=== PATIENT | male | born 1970 | race Caucasian/White ===

== ENCOUNTER 2017-06-18 13:08 | Emergency (ER) | payer SELFPAY ==
[~2017-06-18] VITALS: Ht 182.9 cm; Wt 105.0 kg
[2017-06-18 13:10] VITALS: BP 164/99; PULSE 70; RESP 24; TEMP 97.5; O2SAT 98
--- NOTE | 2017-06-18 13:26 | PD ---
HPI Chief Complaint: Abdominal Pain Time Seen by Provider: 13:26 Travel History International Travel<30 days: No Contact w/Intl Traveler<30days: No Traveled to known affect area: No History of Present Illness HPI 46-year-old male came to the emergency room with history of sudden onset of right lower quadrant pain. Patient said that he did not eat anything except for an alkaline the morning and he vomited the apple out. He has never had pain like this in the past. He looked very uncomfortable. No radiation of the pain. Vital signs were within acceptable limits. Patient has never had any abdominal surgeries in the past. He claims to be otherwise healthy. [facility] Past Medical History Narrative Medical List of his past medical, surgical, social and family history was reviewed from the nursing note. Social History Tobacco Use: No Allergies-Medications (Allergen,Severity, Reaction): Coded Allergies: No Known Allergies (Unverified , 06/19/17) Comments No known drug allergies. Reported Meds & Prescriptions Reported Meds & Active Scripts Active Lortab (Hydrocodone-Acetaminophen) 5-325 Mg Tab 1 Tab PO Q6H PRN Zofran Odt (Ondansetron Odt) 4 Mg Tab 4 Mg SL Q6HR PRN Hydrocodone-Acetaminophen 5-325 mg Tab 1 Tab PO Q6H PRN Flomax (Tamsulosin HCl) 0.4 Mg Cap 0.4 Mg PO HS Narrative Medication Awaiting for the nurse to do the med reconciliation. Review of Systems Except as stated in HPI: all other systems reviewed are Neg Physical Exam Narrative GENERAL: Awake, alert, significant distress SKIN: Focused skin assessment warm/dry. HEAD: Atraumatic. Normocephalic. EYES: Pupils equal and round. No scleral icterus. No injection or drainage. ENT: No nasal bleeding or discharge. Mucous membranes pink and moist. NECK: Trachea midline. No JVD. CARDIOVASCULAR: Regular rate and rhythm. No murmur appreciated. RESPIRATORY: No accessory muscle use. Clear to auscultation. Breath sounds equal bilaterally. GASTROINTESTINAL: Decreased bowel sounds, guarding and tenderness in the right lower quadrant, nondistended. Hepatic and splenic margins not palpable. MUSCULOSKELETAL: No obvious deformities. No clubbing. No cyanosis. No edema. NEUROLOGICAL: Awake and alert. No obvious cranial nerve deficits. Motor grossly within normal limits. Normal speech. PSYCHIATRIC: Appropriate mood and affect; insight and judgment normal. Data Data Last Documented VS Vital Signs Date Time Temp Pulse Resp B/P Pulse Ox O2 Delivery O2 Flow Rate FiO2 06/18/17 16:58 97.8 72 16 130/79 99 06/18/17 14:28 Room Air Orders Complete Blood Count With Diff (06/18/17 13:33) Comprehensive Metabolic Panel (06/18/17 13:33) Lipase (06/18/17 13:33) Urinalysis - C+S If Indicated (06/18/17 13:33) Ct Abd/Pel W/O Iv Contrast (06/18/17 13:33) Iv Access Insert/Monitor (06/18/17 13:33) Ecg Monitoring (06/18/17 13:33) Oximetry (06/18/17 13:33) Morphine Inj (Morphine Inj) (06/18/17 13:45) Ondansetron Inj (Zofran Inj) (06/18/17 13:45) Sodium Chlor 0.9% 1000 Ml Inj (Ns 1000 M (06/18/17 13:33) Sodium Chloride 0.9% Flush (Ns Flush) (06/18/17 13:45) Sodium Chlorid 0.9% 500 Ml Inj (Ns 500 M (06/18/17 16:00) Tamsulosin (Flomax) (06/18/17 16:00) Strain Urine PRN (06/18/17 15:59) Labs Laboratory Tests Test 06/18/17 06/18/17 13:38 14:40 White Blood Count 11.7 TH/MM3 Red Blood Count 5.36 MIL/MM3 Hemoglobin 15.9 GM/DL Hematocrit 45.2 % Mean Corpuscular Volume 84.3 FL Mean Corpuscular Hemoglobin 29.6 PG Mean Corpuscular Hemoglobin 35.1 % Concent Red Cell Distribution Width 13.8 % Platelet Count 183 TH/MM3 Mean Platelet Volume 8.4 FL Neutrophils (%) (Auto) 83.7 % Lymphocytes (%) (Auto) 10.5 % Monocytes (%) (Auto) 4.7 % Eosinophils (%) (Auto) 0.6 % Basophils (%) (Auto) 0.5 % Neutrophils # (Auto) 9.8 TH/MM3 Lymphocytes # (Auto) 1.2 TH/MM3 Monocytes # (Auto) 0.5 TH/MM3 Eosinophils # (Auto) 0.1 TH/MM3 Basophils # (Auto) 0.1 TH/MM3 CBC Comment DIFF FINAL Differential Comment Sodium Level 139 MEQ/L Potassium Level 4.2 MEQ/L Chloride Level 107 MEQ/L Carbon Dioxide Level 22.1 MEQ/L Anion Gap 10 MEQ/L Blood Urea Nitrogen 16 MG/DL Creatinine 1.04 MG/DL Estimat Glomerular Filtration 76 ML/MIN Rate Random Glucose 139 MG/DL Calcium Level 9.3 MG/DL Total Bilirubin 0.3 MG/DL Aspartate Amino Transf 13 U/L (AST/SGOT) Alanine Aminotransferase 21 U/L (ALT/SGPT) Alkaline Phosphatase 77 U/L Total Protein 7.3 GM/DL Albumin 3.9 GM/DL Lipase 112 U/L Urine Color YELLOW Urine Turbidity CLEAR Urine pH 5.0 Urine Specific [place] 1.023 Urine Protein TRACE mg/dL Urine Glucose (UA) NEG mg/dL Urine Ketones 40 mg/dL Urine Occult Blood MOD Urine Nitrite NEG Urine Bilirubin NEG Urine Urobilinogen LESS THAN 2.0 MG/DL Urine Leukocyte Esterase NEG Urine RBC 82 /hpf Urine WBC 4 /hpf Urine Bacteria OCC /hpf Microscopic Urinalysis Comment CULT NOT INDICATED MDM Medical Decision Making Medical Screen Exam Complete: Yes Emergency Medical Condition: Yes Medical Record Reviewed: Yes Differential Diagnosis Acute appendicitis, terminal ileitis, ureteral colic, abdominal pain NOS Narrative Course 1:40 PM awaiting for the labs and CT to be done and resulted. Patient was given IV fluid and medicated for pain and nausea. 2:43 PM blood test results of back and within acceptable limits. CT scan shows a 5 mm stone in her right UPJ with hydroureter. I went to reassess him and he said currently his pain is 1 out of 10. He had initially come in and he said it was 10 out of 10. He will try to give a UA. If the UA is negative and his pain is still under well-controlled and I'll discharge him home. 3:56 PM the UA just shows hematuria. I will discharge him home. He said his pain was still 1. He was sleeping and comfortable. Gave him all the instructions and signs to watch for for coming back. Procedures EKG Prior to Arrival: No Diagnosis Primary Impression: Ureteral colic Additional Impressions: Ureteral calculi Hydroureter Referrals: Eitan Bowden MD 3 days Additional Instructions: Please follow-up with the urologist whose name and number been given to you. Urinate through the strainer has been provided to you at all times till you pass the stone. Take the stone with you to the urologist. Take the medication as per the prescription direction. Return to the ER if the condition worsens or any other new concerns. Med/Other Pt SpecificInfo: Prescription(s) given Scripts Hydrocodone-Acetaminophen 5-325 mg Tab1 Tab PO Q6H PRN (PAIN) #20 TAB Ref 0 Prov:Narciso Hutchins MD 06/18/17 Tamsulosin (Flomax)0.4 Mg Cap0.4 Mg PO HS #10 CAP Ref 0 Prov:Narciso Hutchins MD 06/18/17 Disposition: 01 DISCHARGE HOME Condition: Stable Narciso Hutchins MD Jun 18, 2017 13:26
[2017-06-18] MEDS ORDERED: SODIUM CHLOR 0.9% 1000 ML INJ 1,000 ML IV SCH (13:33)
[2017-06-18 13:40] VITALS: RESP 17; O2SAT 99
[2017-06-18] MEDS ORDERED: ONDANSETRON HCL 4 MG/2 ML VIAL IVP ONE (13:45)
[2017-06-18] MEDS ORDERED: MORPHINE SULFATE 4 MG/ML INJ IV PUSH ONE (13:45)
[2017-06-18] MEDS ORDERED: SODIUM CHLORIDE 0.9% FLUSH 10 ML FLUSH IV FLUSH PRN (13:45)
[2017-06-18 14:03] LABS: AUTOMATED NEUTROPHIL # 9.8 TH/MM3 (1.8-7.7); BASOPHIL # 0.1 TH/MM3 (0-0.2); BASOPHIL % 0.5 % (0.0-2.0); EOSINOPHIL # 0.1 TH/MM3 (0-0.4); EOSINOPHIL % 0.6 % (0.0-4.0); HEMATOCRIT 45.2 % (39.0-51.0); HEMO FLAGS DIFF FINAL; LYMPH % 10.5 % (9.0-44.0); LYMPHOCYTE # 1.2 TH/MM3 (1.0-4.8); MEAN CELL VOLUME 84.3 FL (80.0-100.0); MEAN CORPUSCULAR HEMOGLOBIN 29.6 PG (27.0-34.0); MEAN CORPUSCULAR HGB CONC 35.1 % (32.0-36.0); MONO % 4.7 % (0.0-8.0); NEUT % 83.7 % (16.0-70.0); PLATELET COUNT 183 TH/MM3 (150-450); RED BLOOD COUNT 5.36 MIL/MM3 (4.50-5.90); RED CELL DISTRIBUTION WIDTH 13.8 % (11.6-17.2); WHITE BLOOD COUNT 11.7 TH/MM3 (4.0-11.0)
--- NOTE | 2017-06-18 14:24 | RADRPT ---
EXAM DATE/TIME: 06/18/2017 14:01 [facility] COMPARISON: No previous studies available for comparison. INDICATIONS : Right lower quadrant pain x 2 hours with nausea and vomiting. ORAL CONTRAST: No oral contrast ingested. RADIATION DOSE: 9.96 CTDIvol (mGy) MEDICAL HISTORY : None SURGICAL HISTORY : None. ENCOUNTER: Initial ACUITY: 1 day PAIN SCALE: 7/10 LOCATION: Right lower quadrant TECHNIQUE: Volumetric scanning of the abdomen and pelvis was performed. Using automated exposure control and ad justment of the mA and/or kV according to patient size, radiation dose was kept as low as reasonably achievable to obtain optimal diagnostic quality images. DICOM format image data is available electro nically for review and comparison. FINDINGS: There is dependent atelectasis at both lung bases. No acute findings in the liver, spleen, adrenals, left kidney or pancreas. 5 mm calculus at the right ureteropelvic junction resulting in a right sided obstructive uropathy and mild to moderate right hydronephrosis.. No free fluid. No bowel obstruction. No adenopathy. No acute bony abnormalities. CONCLUSION: 1. Right-sided obstructive uropathy secondary to a 5 mm calculus at the right UPJ with mild to modera te right hydronephrosis. No other renal calculi identified. Rojelio Fonseca MD on June 18, 2017 at 14:19 Board Certified Radiologist. This report was verified electronically.
[2017-06-18 14:28] VITALS: BP 146/80; PULSE 74; RESP 16; TEMP 97.8; O2SAT 99
[2017-06-18 14:28] LABS: ANION GAP 10 MEQ/L (5-15); AST (GOT) 13 U/L (15-37); BICARBONATE 22.1 MEQ/L (21.0-32.0); BLOOD UREA NITROGEN 16 MG/DL (7-18); CHLORIDE 107 MEQ/L (98-107); GLOMERULAR FILTRATION RATE 76 ML/MIN (>89); POTASSIUM 4.2 MEQ/L (3.5-5.1); SODIUM (NA) 139 MEQ/L (136-145)
[2017-06-18 14:29] LABS: ALT (GPT) 21 U/L (12-78)
[2017-06-18 14:31] LABS: ALKALINE PHOSPHATASE 77 U/L (45-117); TOTAL BILIRUBIN ADULT 0.3 MG/DL (0.2-1.0)
[2017-06-18 15:41] LABS: BACTERIA, URINE OCC /hpf; BLOOD, URINE MOD (NEG); COMMENT (UR) CULT NOT INDICATED; CULTURE IF INDICATED CULT NOT INDICATED; GLUCOSE,URINE NEG (NEG); KETONE, URINE 40 mg/dL (NEG); NITRITE,URINE NEG (NEG); URINE COLOR YELLOW (YELLW/STRAW)
[2017-06-18] MEDS ORDERED: TAMS5CAP PO (15:58)
[2017-06-18] MEDS ORDERED: HYDR-3516 PO (15:58)
[2017-06-18] MEDS ORDERED: TAMSULOSIN HCL 0.4 MG CAP PO ONE (16:00)
[2017-06-18] MEDS ORDERED: SODIUM CHLORID 0.9% 500 ML INJ 500 ML IV ONE (16:00)
[2017-06-18 16:58] VITALS: BP 130/79; TEMP 97.8
[2017-06-19] MEDS ORDERED: ZOFR4TAB3 SL (10:06)
[2017-06-19] MEDS ORDERED: HYDR-3533 PO (10:10)
== END 2017-06-18 17:02 | disposition home or self-care (01) ==
LOC: NEPE 13:08
DX: N13.2 Hydronephrosis with renal and ureteral calculous obstruction (principal)
CPT/HCPCS: 74176; 80053; 81001; 83690; 85025; 96361; 96374; 96375; 99285; J2270; J2405; J7030; J7040

== ENCOUNTER 2017-06-19 07:14 | Emergency (ER) | payer SELFPAY ==
[~2017-06-19 07:14] MED LIST: HYDR-3516 PO; TAMS5CAP PO
[2017-06-19 07:16] VITALS: BP 163/97; PULSE 74; TEMP 97.6; O2SAT 97
[2017-06-19] MEDS ORDERED: SODIUM CHLOR 0.9% 1000 ML INJ 1,000 ML IV ONE (07:30)
[2017-06-19] MEDS ORDERED: ONDANSETRON HCL 4 MG/2 ML VIAL IV PUSH ONE (07:30)
[2017-06-19] MEDS ORDERED: KETOROLAC TROMETHAMINE 30 MG/ML (IVP) VIAL IV PUSH ONE (07:30)
--- NOTE | 2017-06-19 07:30 | PD ---
HPI Chief Complaint: Flank/Kidney Pain Time Seen by Provider: 07:25 Travel History International Travel<30 days: No Contact w/Intl Traveler<30days: No Traveled to known affect area: No History of Present Illness HPI 46 y/o male states that he is been having continued right sided abdominal pain and vomiting since being discharged. He states he cannot afford his home medications until . He states he has had no other symptoms since being discharged. Quality is sharp. Severity severe. He confirms that he was here yesterday for kidney stone. PFSH Past Medical History Diminished Hearing: No Genitourinary: Yes (kidney stones) Tetanus Vaccination: > 5 Years Influenza Vaccination: Yes Past Surgical History Genitourinary Surgery: Yes (left testicule sx) Social History Alcohol Use: No (pt denies ) Tobacco Use: Yes (1 pack per day) Substance Use: No (pt denies) Allergies-Medications (Allergen,Severity, Reaction): Coded Allergies: No Known Allergies (Unverified , 06/19/17) Reported Meds & Prescriptions Reported Meds & Active Scripts Active Lortab (Hydrocodone-Acetaminophen) 5-325 Mg Tab 1 Tab PO Q6H PRN Zofran Odt (Ondansetron Odt) 4 Mg Tab 4 Mg SL Q6HR PRN Hydrocodone-Acetaminophen 5-325 mg Tab 1 Tab PO Q6H PRN Flomax (Tamsulosin HCl) 0.4 Mg Cap 0.4 Mg PO HS Review of Systems Except as stated in HPI: all other systems reviewed are Neg Physical Exam Narrative GENERAL: Well-nourished, well-developed patient. Uncomfortable SKIN: Warm and dry. HEAD: Normocephalic and atraumatic. EYES: No injection or drainage. ENT: No nasal drainage noted. NECK: Supple, trachea midline. CARDIOVASCULAR: Regular rate and rhythm RESPIRATORY: No increased effort. No accessory muscle use. GASTROINTESTINAL: Abdomen soft, tender right mid abdomen, nondistended. EXTREMITIES: No edema. BACK: Nontender without obvious deformity. NEUROLOGICAL: Awake and alert. Motor and sensory grossly within normal limits. Normal speech. Data Data Last Documented VS Vital Signs Date Time Temp Pulse Resp B/P Pulse Ox O2 Delivery O2 Flow Rate FiO2 06/19/17 09:00 97.8 76 16 150/81 99 Room Air Orders Complete Blood Count With Diff (06/19/17 07:25) Basic Metabolic Panel (Bmp) (06/19/17 07:25) Iv Access Insert/Monitor (06/19/17 07:25) Ketorolac Inj (Toradol Inj) (06/19/17 07:30) Sodium Chlor 0.9% 1000 Ml Inj (Ns 1000 M (06/19/17 07:30) Ondansetron Inj (Zofran Inj) (06/19/17 07:30) Urinalysis - C+S If Indicated (06/19/17 09:08) Mandatory Outpatient Referral (06/19/17 09:54) Labs Laboratory Tests Test 06/19/17 06/19/17 07:30 09:30 White Blood Count 16.7 TH/MM3 Red Blood Count 5.36 MIL/MM3 Hemoglobin 15.4 GM/DL Hematocrit 45.7 % Mean Corpuscular Volume 85.2 FL Mean Corpuscular Hemoglobin 28.8 PG Mean Corpuscular Hemoglobin 33.8 % Concent Red Cell Distribution Width 13.9 % Platelet Count 198 TH/MM3 Mean Platelet Volume 8.5 FL Neutrophils (%) (Auto) 91.3 % Lymphocytes (%) (Auto) 4.7 % Monocytes (%) (Auto) 3.5 % Eosinophils (%) (Auto) 0.1 % Basophils (%) (Auto) 0.4 % Neutrophils # (Auto) 15.2 TH/MM3 Lymphocytes # (Auto) 0.8 TH/MM3 Monocytes # (Auto) 0.6 TH/MM3 Eosinophils # (Auto) 0.0 TH/MM3 Basophils # (Auto) 0.1 TH/MM3 CBC Comment DIFF FINAL Differential Comment Sodium Level 138 MEQ/L Potassium Level 4.0 MEQ/L Chloride Level 107 MEQ/L Carbon Dioxide Level 23.7 MEQ/L Anion Gap 7 MEQ/L Blood Urea Nitrogen 14 MG/DL Creatinine 1.14 MG/DL Estimat Glomerular Filtration 69 ML/MIN Rate Random Glucose 138 MG/DL Calcium Level 8.9 MG/DL Urine Color YELLOW Urine Turbidity CLEAR Urine pH 6.5 Urine Specific [place] 1.011 Urine Protein NEG mg/dL Urine Glucose (UA) NEG mg/dL Urine Ketones NEG mg/dL Urine Occult Blood MOD Urine Nitrite NEG Urine Bilirubin NEG Urine Urobilinogen LESS THAN 2.0 MG/DL Urine Leukocyte Esterase NEG Urine RBC 53 /hpf Urine WBC 2 /hpf Urine Mucus FEW /lpf Microscopic Urinalysis Comment CULT NOT INDICATED MDM Medical Decision Making Medical Screen Exam Complete: Yes Emergency Medical Condition: Yes Medical Record Reviewed: Yes (past history confirmed) Interpretation(s) CBC & BMP Diagram 06/19/17 07:30 ua no uti Differential Diagnosis Pain control, renal failure, electrolyte abnormality Narrative Course Will check blood work and dose with IV fluids, antiemetics, pain medication and reevaluate Pain resolved, no emesis here Patient denies any new complaints and states that they are feeling better. Patient happy with care, all questions answered. Patient knows that follow up is incumbent on them and to return to the emergency room immediately if new or worsening symptoms develop. Patient given strict return precautions, vitals reviewed and are normal, agrees to further workup as an outpatient. Mandatory consult place, case management assisted with getting medications Diagnosis Primary Impression: Ureteral calculi Patient Instructions: General Instructions Additional Instructions: Return as needed, fill pain medication, Zofran as needed for nausea, I placed a mandatory referral to help coordinate urology follow-up Med/Other Pt SpecificInfo: Prescription(s) given Scripts Hydrocodone-Acetaminophen (Lortab)5-325 Mg Tab1 Tab PO Q6H PRN (PAIN) #10 TAB Prov:Jil Rubin MD 06/19/17 Ondansetron Odt (Zofran Odt)4 Mg Tab4 Mg SL Q6HR PRN (Nausea/Vomiting) #10 TAB Prov:Jil Rubin MD 06/19/17 Disposition: 01 DISCHARGE HOME Condition: Stable Jil Rubin MD Jun 19, 2017 07:30
[2017-06-19 08:11] LABS: AUTOMATED NEUTROPHIL # 15.2 TH/MM3 (1.8-7.7); BASOPHIL # 0.1 TH/MM3 (0-0.2); BASOPHIL % 0.4 % (0.0-2.0); EOSINOPHIL % 0.1 % (0.0-4.0); HEMATOCRIT 45.7 % (39.0-51.0); HEMO FLAGS DIFF FINAL; LYMPH % 4.7 % (9.0-44.0); LYMPHOCYTE # 0.8 TH/MM3 (1.0-4.8); MEAN CELL VOLUME 85.2 FL (80.0-100.0); MEAN CORPUSCULAR HEMOGLOBIN 28.8 PG (27.0-34.0); MEAN CORPUSCULAR HGB CONC 33.8 % (32.0-36.0); MONO % 3.5 % (0.0-8.0); NEUT % 91.3 % (16.0-70.0); PLATELET COUNT 198 TH/MM3 (150-450); RED BLOOD COUNT 5.36 MIL/MM3 (4.50-5.90); RED CELL DISTRIBUTION WIDTH 13.9 % (11.6-17.2); WHITE BLOOD COUNT 16.7 TH/MM3 (4.0-11.0)
[2017-06-19 08:36] LABS: BICARBONATE 23.7 MEQ/L (21.0-32.0)
[2017-06-19 09:00] VITALS: BP 150/81; PULSE 76; RESP 16; TEMP 97.8; O2SAT 99
[2017-06-19 09:46] LABS: BLOOD, URINE MOD (NEG); COMMENT (UR) CULT NOT INDICATED; CULTURE IF INDICATED CULT NOT INDICATED; GLUCOSE,URINE NEG (NEG); KETONE, URINE NEG (NEG); MUCUS URINE FEW /lpf (OCC); NITRITE,URINE NEG (NEG); PH, URINE 6.5 (5.0-8.5); URINE COLOR YELLOW (YELLW/STRAW)
[2017-06-19] MEDS ORDERED: ZOFR4TAB3 SL (10:06)
[2017-06-19] MEDS ORDERED: HYDR-3533 PO (10:10)
[2017-06-19 10:33] VITALS: BP 133/81; TEMP 97.8
== END 2017-06-19 10:33 | disposition home or self-care (01) ==
LOC: NEPC 07:14 → NEPD 10:33
DX: N20.1 Calculus of ureter (principal); F17.210 Nicotine dependence, cigarettes, uncomplicated
CPT/HCPCS: 80048; 81001; 85025; 96361; 96374; 96375; 99284; J1885; J2405; J7030

== ENCOUNTER 2017-06-21 17:57 | Inpatient (IN) | payer SELFPAY ==
[~2017-06-21] VITALS: Ht 182.9 cm; Wt 105.0 kg
[~2017-06-21 17:57] MED LIST changes: +HYDR-3533 PO; +ZOFR4TAB3 SL
[2017-06-21 17:58] VITALS: BP 157/88; PULSE 88; RESP 19; TEMP 98.4; O2SAT 98
[2017-06-21] MEDS ORDERED: MORPHINE SULFATE 4 MG/ML INJ IV PUSH ONE (19:00)
[2017-06-21] MEDS ORDERED: KETOROLAC TROMETHAMINE 30 MG/ML (IVP) VIAL IV PUSH ONE (19:00)
[2017-06-21] MEDS ORDERED: ONDANSETRON HCL 4 MG/2 ML VIAL IV PUSH ONE (19:00)
[2017-06-21 19:11] VITALS: BP 166/91; PULSE 81; RESP 20; O2SAT 96
--- NOTE | 2017-06-21 19:13 | PD ---
HPI Chief Complaint: Flank/Kidney Pain Time Seen by Provider: 20:36 Travel History International Travel<30 days: No Contact w/Intl Traveler<30days: No Traveled to known affect area: No History of Present Illness HPI 47- year old male presents to the ED complaining of RLQ abdominal pain. The patient was seen in the ED on Saturday and Saturday and was told he had kidney stones. The patient reports that he was taking Sligo, however it did not help with the pain. The patient states he was able to urinate up until 20 minutes before arriving to the ED today. He reports his pain as stabbing and rates it as a 10/10 today. He reports no radiation, fevers, chills, or night sweats. He denies any prior abdominal surgeries. He reports no medical conditions and no medications other than Sligo. PFSH Past Medical History Diminished Hearing: No Genitourinary: Yes (kidney stones) Past Surgical History Genitourinary Surgery: Yes (left testicule sx) Social History Alcohol Use: No (pt denies ) Tobacco Use: Yes (1 pack per day) Substance Use: No (pt denies) Allergies-Medications (Allergen,Severity, Reaction): Coded Allergies: No Known Allergies (Unverified , 06/19/17) Reported Meds & Prescriptions Reported Meds & Active Scripts Active Zofran Odt (Ondansetron Odt) 4 Mg Tab 4 Mg SL Q6HR PRN Hydrocodone-Acetaminophen 5-325 mg Tab 1 Tab PO Q6H PRN Flomax (Tamsulosin HCl) 0.4 Mg Cap 0.4 Mg PO HS Review of Systems General / Constitutional: No: Fever, Chills, Weight Gain, Weight Loss, Other Eyes: No: Diploplia, Blurred Vision, Photophobia, Drainage, Redness, Foreign Body Sensation, Pain, Tearing, Blind Spots, Visual changes, Blindness, Other HENT: No: Headaches, Vertigo, Lightheadedness, Sore Throat, Rhinitis, Rhinorrhea, Congestion, Nosebleed, Neck Stiffness, Neck Pain, Masses, Gingival Bleeding, Dental Difficulties, Ear Discharge, Earache, Other Cardiovascular: No: Chest Pain or Discomfort, Palpitations, Irregular Rhythm, Tachycardia, Diaphoresis, Syncope, Dyspnea on exertion, Varicosities, Edema, Cyanosis, Varicosities, Phlebitis, Claudication, Other Respiratory: No: Cough, Shortness of Breath, Wheezing, Sneezing, Orthopnea, Hemoptysis, Stridor, Night Sweats, Pleuritic Pain, Other Gastrointestinal: Positive: Abdominal Pain, No: Nausea, Vomiting, Diarrhea, Hematemesis, Hematochezia, Constipation, Changes in Bowel Habits, Indigestion, Dysphagia, Loss of Appetite, Other Genitourinary: Positive: Dysuria, Decreased Urinary Output, No: Urgency, Frequency, Nocturia, Hematuria, Oliguria, Hesitancy, Dribbling, Incontinence, Pelvic Pain, Flank Pain, Dyspareunia, Discharge, Dysmenorrhea, Menorrhagia, Metorrhagia, Vaginal Bleeding, Other Musculoskeletal: No: Myalgias, Arthralgias, Limited ROM, Weakness, Cramping, Edema, Pain, Atrophy, Other Skin: No Rash, No Itching, No Dryness, No Lumps, No Hives, No Change in Pigmentation, No Change in nails, No Alopecia, No Lesions, No Breast Lumps, No Breast Tenderness, No Breast Swelling, No Other Neurologic: No: Weakness, Dizziness, Syncope, Focal Abnormalities, Coordination Problem, Tremor, Ataxia, Headache, Change in Mentation, Slurred Speech, Paresthesia, Incontinence, Seizures, Sensory Disturbance, Other Psychiatric: No: Anxiety, Depression, Suicidal Ideations, Disorder of Thought, Mood Disorder, Substance Abuse, Homicidal Ideation, Other Endocrine: No: Heat Intolerance, Cold Intolerance, Polyuria, Polydipsia, Other Hematologic/Lymphatic: No: Easy Bruising, Lymph Node Enlargement, Other Physical Exam Narrative GENERAL: SKIN: Warm and dry. HEAD: Atraumatic. Normocephalic. EYES: Pupils equal and round. No scleral icterus. No injection or drainage. ENT: No nasal bleeding or discharge. Mucous membranes pink and moist. NECK: Trachea midline. No JVD. CARDIOVASCULAR: Regular rate and rhythm. RESPIRATORY: No accessory muscle use. Clear to auscultation. Breath sounds equal bilaterally. GASTROINTESTINAL: Tender to palpation in RLQ. Right CVA tenderness. Abdomen soft , nondistended. Hepatic and splenic margins not palpable. MUSCULOSKELETAL: Extremities without clubbing, cyanosis, or edema. No obvious deformities. NEUROLOGICAL: Awake and alert. No obvious cranial nerve deficits. Motor grossly within normal limits. Five out of 5 muscle strength in the arms and legs. Normal speech. PSYCHIATRIC: Appropriate mood and affect; insight and judgment normal. Data Data Last Documented VS Vital Signs Date Time Temp Pulse Resp B/P Pulse Ox O2 Delivery O2 Flow Rate FiO2 06/21/17 19:11 81 20 166/91 96 Room Air 06/21/17 17:58 98.4 Orders Complete Blood Count With Diff (06/21/17 19:00) Basic Metabolic Panel (Bmp) (06/21/17 19:00) Urinalysis - C+S If Indicated (06/21/17 19:00) Magnesium (Mg) (06/21/17 19:00) Iv Access Insert/Monitor (06/21/17 19:00) Morphine Inj (Morphine Inj) (06/21/17 19:00) Ondansetron Inj (Zofran Inj) (06/21/17 19:00) Ketorolac Inj (Toradol Inj) (06/21/17 19:00) Abdomen, Kub Only (06/21/17 ) Sodium Chlor 0.9% 1000 Ml Inj (Ns 1000 M (06/21/17 19:48) Admit Order (Ed Use Only) (06/21/17 20:33) Labs Laboratory Tests Test 06/21/17 19:12 White Blood Count 13.4 TH/MM3 Red Blood Count 5.37 MIL/MM3 Hemoglobin 15.2 GM/DL Hematocrit 45.5 % Mean Corpuscular Volume 84.8 FL Mean Corpuscular Hemoglobin 28.3 PG Mean Corpuscular Hemoglobin 33.4 % Concent Red Cell Distribution Width 14.1 % Platelet Count 217 TH/MM3 Mean Platelet Volume 8.3 FL Neutrophils (%) (Auto) 84.1 % Lymphocytes (%) (Auto) 8.2 % Monocytes (%) (Auto) 6.1 % Eosinophils (%) (Auto) 0.8 % Basophils (%) (Auto) 0.8 % Neutrophils # (Auto) 11.3 TH/MM3 Lymphocytes # (Auto) 1.1 TH/MM3 Monocytes # (Auto) 0.8 TH/MM3 Eosinophils # (Auto) 0.1 TH/MM3 Basophils # (Auto) 0.1 TH/MM3 CBC Comment DIFF FINAL Differential Comment Sodium Level 138 MEQ/L Potassium Level 4.0 MEQ/L Chloride Level 104 MEQ/L Carbon Dioxide Level 25.4 MEQ/L Anion Gap 9 MEQ/L Blood Urea Nitrogen 17 MG/DL Creatinine 1.40 MG/DL Estimat Glomerular Filtration 54 ML/MIN Rate Random Glucose 111 MG/DL Calcium Level 9.2 MG/DL Magnesium Level 2.2 MG/DL MDM Medical Decision Making Medical Screen Exam Complete: Yes Emergency Medical Condition: Yes Medical Record Reviewed: Yes Interpretation(s) CBC & BMP Diagram 06/21/17 19:12 Last Impressions Abdomen X-Ray 06/21/17 0000 Signed Impressions: Service Date/Time: Wednesday, June 21, 2017 19:10 - CONCLUSION: Benign abdomen. Elkin Perdomo MD Differential Diagnosis Pyelonephritis Nephrolithiasis UTI Narrative Course 47-year-old male that presents to the ED for evaluation of kidney stone. Patient was properly examined and was found to have signs and symptoms consistent with kidney stone. Patient has been taking his medications with minimal relief. Case discussed in my attending DrWilber beal actually saw the patient on the second and recommends labs and imaging. Labs and imaging were essentially unremarkable other than for acute kidney injury likely from hydronephrosis and kidney stone. She recommends admission. Case was discussed with urology on-call Lwindy who agrees with admission for labs and consult to him. Case discussed with Dr. Sifuentes who agrees to admission. Diagnosis Primary Impression: Ureteral calculi Additional Impressions: Hydronephrosis Qualified Code: N13.2 - Hydronephrosis with urinary obstruction due to renal calculus Acute kidney injury Admitting Information Admitting Physician Requests: Admit Darshan Hernandez Jun 21, 2017 19:13
[2017-06-21 19:36] LABS: AUTOMATED NEUTROPHIL # 11.3 TH/MM3 (1.8-7.7); BASOPHIL # 0.1 TH/MM3 (0-0.2); BASOPHIL % 0.8 % (0.0-2.0); EOSINOPHIL # 0.1 TH/MM3 (0-0.4); EOSINOPHIL % 0.8 % (0.0-4.0); HEMATOCRIT 45.5 % (39.0-51.0); HEMO FLAGS DIFF FINAL; LYMPH % 8.2 % (9.0-44.0); LYMPHOCYTE # 1.1 TH/MM3 (1.0-4.8); MEAN CELL VOLUME 84.8 FL (80.0-100.0); MEAN CORPUSCULAR HEMOGLOBIN 28.3 PG (27.0-34.0); MEAN CORPUSCULAR HGB CONC 33.4 % (32.0-36.0); MONO % 6.1 % (0.0-8.0); NEUT % 84.1 % (16.0-70.0); PLATELET COUNT 217 TH/MM3 (150-450); RED BLOOD COUNT 5.37 MIL/MM3 (4.50-5.90); RED CELL DISTRIBUTION WIDTH 14.1 % (11.6-17.2); WHITE BLOOD COUNT 13.4 TH/MM3 (4.0-11.0)
--- NOTE | 2017-06-21 19:39 | RADRPT ---
EXAM DATE/TIME: 06/21/2017 19:10 [facility] COMPARISON: No previous studies available for comparison. INDICATIONS : Right abdominal pain, renal stones. MEDICAL HISTORY : None. SURGICAL HISTORY : None. ENCOUNTER: [facility] ACUITY: 4 - 6 days PAIN SCORE: 10/10 LOCATION: Right abdomen. FINDINGS: Supine view of the abdomen was performed. The abdominal bowel gas pattern is normal. No abnormal ma sses, calcifications, or organomegaly is seen. The osseous structures are unremarkable. CONCLUSION: Benign abdomen. Elkin Perdomo MD on June 21, 2017 at 19:36 Board Certified Radiologist. This report was verified electronically.
[2017-06-21] MEDS ORDERED: SODIUM CHLOR 0.9% 1000 ML INJ 1,000 ML IV SCH (19:48)
[2017-06-21 19:51] LABS: BICARBONATE 25.4 MEQ/L (21.0-32.0); MAGNESIUM 2.2 MG/DL (1.5-2.5)
[2017-06-21 20:37] VITALS: BP 136/79; PULSE 78; RESP 18; O2SAT 96
--- NOTE | 2017-06-21 20:40 | HHI.HP ---
HPI Service [facility] Primary Care Physician No Primary Care Physician Admission Diagnosis right urethral stone with hydronephrosis, failed outpatient tx Diagnoses: (1) Hydronephrosis Diagnosis: Principal (2) Renal insufficiency Diagnosis: Principal (3) Renal stone Diagnosis: Principal (4) Tobacco abuse Diagnosis: Principal Travel History International Travel<30 Days: No Contact w/Intl Traveler <30 Da: No Traveled to Known Affected Are: No History of Present Illness This is a 47-year-old male with no significant PMH who presents the ER with complaints of significant right flank pain. Presented to ER on 06/18/17 for similar complaints, CT Abd/Pelvis w/ 5mm stone right UPJ and hydroureter, d/c'd home w/ outpatient Urology referral and Lortab/Flomax. Returned to ER on for ongoing complaints as unable to fill prescriptions, Case Management consulted and assisted w/ obtaining medications. Returns now w/ ongoing pain unresponsive to Lortab. Denies fever or chills. On arrival, BP 157/88, HR 88, O2 sat 98% on RA, Afebrile. W WBC 13.4. Creatinine 1.40, previously 1.14 on . UA negative for UTI. Abdominal X-ray benign. Dr. Tabares consulted by ER physician, will evaluate in am for possible stent placement. Review of Systems Except as stated in HPI: all other systems reviewed are Neg ROS: 14 point review of systems otherwise negative. Past Family Social History Past Medical History PMH: None Past Surgical History PAST SURGICAL HISTORY: Left Testicular Surgery Allergies: Coded Allergies: No Known Allergies (Unverified , 06/21/17) Family History PAST FAMILY HISTORY: Reviewed. No h/o DM or CAD Social History PAST SOCIAL HISTORY: Negative for alcohol or drugs. Smokes 1ppd. Physical Exam Vital Signs Vital Signs Date Time Temp Pulse Resp B/P Pulse Ox O2 Delivery O2 Flow Rate FiO2 06/21/17 20:37 78 18 136/79 96 Room Air 06/21/17 19:11 81 20 166/91 96 Room Air 06/21/17 17:58 98.4 88 19 157/88 98 Physical Exam PE: GENERAL: Middle-aged male in no acute distress. HEENT: PERRLA, EOMI. No scleral icterus or conjunctival pallor. No lid lag or facial droop. CARDIOVASCULAR: Regular rate and rhythm. No obvious murmurs to auscultation. No chest tenderness to palpation. RESPIRATORY: No obvious rhonchi or wheezing. Clear to auscultation. Breath sounds equal bilaterally. GASTROINTESTINAL: Abdomen soft, right flank tenderness, nondistended. BS normal. MUSCULOSKELETAL: Extremities without clubbing, cyanosis, or edema. No obvious deformities. NEUROLOGICAL: Awake, alert and oriented x4. No focal neurologic deficits. Moving both upper and lower extremities spontaneously. Laboratory Laboratory Tests Test 06/21/17 19:12 White Blood Count 13.4 Red Blood Count 5.37 Hemoglobin 15.2 Hematocrit 45.5 Mean Corpuscular Volume 84.8 Mean Corpuscular Hemoglobin 28.3 Mean Corpuscular Hemoglobin 33.4 Concent Red Cell Distribution Width 14.1 Platelet Count 217 Mean Platelet Volume 8.3 Neutrophils (%) (Auto) 84.1 Lymphocytes (%) (Auto) 8.2 Monocytes (%) (Auto) 6.1 Eosinophils (%) (Auto) 0.8 Basophils (%) (Auto) 0.8 Neutrophils # (Auto) 11.3 Lymphocytes # (Auto) 1.1 Monocytes # (Auto) 0.8 Eosinophils # (Auto) 0.1 Basophils # (Auto) 0.1 CBC Comment DIFF FINAL Differential Comment Sodium Level 138 Potassium Level 4.0 Chloride Level 104 Carbon Dioxide Level 25.4 Anion Gap 9 Blood Urea Nitrogen 17 Creatinine 1.40 Estimat Glomerular Filtration 54 Rate Random Glucose 111 Calcium Level 9.2 Magnesium Level 2.2 Result Diagram: 06/21/17191106/21/171911 Assessment and Plan Problem List: (1) Renal stone ICD Code: N20.0 Status: Acute (2) Renal insufficiency ICD Code: N28.9 Status: Acute (3) Hydronephrosis ICD Code: N13.30 Status: Acute (4) Tobacco abuse ICD Code: Z72.0 Status: Acute Assessment and Plan A/P: 1. Renal Stone: c/o ongoing right-sided flank pain, s/p multiple ER presentations for ongoing symptoms, CT Abd/Pelvis 06/18/17 w/ right-sided obstructive uropathy secondary to 5mm stone at right UPJ w/ mild to moderate hydronephrosis, images reviewed by me. Dr. Tabares consulted by ER physician, plan is for possible stent placement. IVF, analgesics/antiemetics, NPO. 2. Hydronephrosis: secondary to obstructive uropathy as above. Continue w/ Flomax, monitor I/O. 3. THOMAS: Creatinine 1.40, previously 1.14 on 06/19/17, secondary to renal stone w / hydronephrosis, IVF for hydration, repeat labs in am. 4. Tobacco Abuse: Pt counselled. Ativan/NicoDerm prn if needed. 5. DVT Prophylaxis: SCD/Teds. 6. Social work for d/c planning as needed. 7. Case discussed w/ ER physician at length. Physician Certification 2 Midnight Certification Type: Admission for Inpatient Services Order for Inpatient Services The services are ordered in accordance with Medicare regulations or non- Medicare payer requirements, as applicable. In the case of services not specified as inpatient-only, they are appropriately provided as inpatient services in accordance with the 2-midnight benchmark. Estimated LOS (days): 2 days is the estimated time the patient will need to remain in the hospital, assuming treatment plan goals are met and no additional complications. Post-Hospital Plan: Not yet determined Problem Qualifiers (1) Hydronephrosis: Qualified Code: N13.2 - Hydronephrosis with urinary obstruction due to renal calculus Kasey Sifuentes MD Jun 21, 2017 20:40
[2017-06-21] MEDS ORDERED: ACETAMINOPHEN/HYDROcodone 325 MG/5 MG TAB PO PRN (20:45)
[2017-06-21] MEDS ORDERED: MAGNESIUM HYDROXIDE SUSP 30 ML CUP PO PRN (20:45)
[2017-06-21] MEDS ORDERED: LACTULOSE SYRUP 20 GM/30 ML CUP PO PRN (20:45)
[2017-06-21] MEDS ORDERED: SENNOSIDES 8.6 MG TAB PO PRN (20:45)
[2017-06-21] MEDS ORDERED: SODIUM CHLORIDE 0.9% FLUSH 10 ML FLUSH IV FLUSH PRN (20:45)
[2017-06-21] MEDS ORDERED: ONDANSETRON HCL 4 MG/2 ML VIAL IVP PRN (20:45)
[2017-06-21] MEDS ORDERED: ACETAMINOPHEN 325 MG TAB PO PRN (20:45)
[2017-06-21] MEDS ORDERED: BISACODYL 10 MG SUPP RECTAL PRN (20:45)
[2017-06-21] MEDS: SODIUM CHLORIDE 0.9% FLUSH 10 ML FLUSH IV FLUSH SCH (21:00)
[2017-06-21] MEDS: SODIUM CHLOR 0.9% 1000 ML INJ 1,000 ML IV SCH (21:30)
[2017-06-21 21:47] LABS: BLOOD, URINE MOD (NEG); COMMENT (UR) CULT NOT INDICATED; CULTURE IF INDICATED CULT NOT INDICATED; GLUCOSE,URINE NEG (NEG); KETONE, URINE 40 mg/dL (NEG); MUCUS URINE FEW /lpf (OCC); NITRITE,URINE NEG (NEG); PH, URINE 5.5 (5.0-8.5); URINE COLOR YELLOW (YELLW/STRAW)
[2017-06-21] MEDS: TAMSULOSIN HCL 0.4 MG CAP PO SCH (22:00)
[2017-06-21] MEDS: DOCUSATE SODIUM 50 MG/SENNA 8.6 MG TAB PO SCH (22:00)
[2017-06-21 22:11] VITALS: BP 135/81; PULSE 72; RESP 18; O2SAT 94
[2017-06-21 22:23] VITALS: BP 135/81
[2017-06-21 22:40] VITALS: BP 154/94; PULSE 70; RESP 17; TEMP 96.7; O2SAT 95
[2017-06-22] MEDS: HYDROmorphone HCL PF 1 MG/ML VIAL IV PRN ×5 (01:00→20:59)
[2017-06-22 04:17] VITALS: BP 115/68; PULSE 69; RESP 17; TEMP 97.1; O2SAT 95
[2017-06-22] MEDS: SODIUM CHLOR 0.9% 1000 ML INJ 1,000 ML IV SCH ×2 (05:21→18:09)
[2017-06-22 08:00] VITALS: BP 125/76; PULSE 68; RESP 18; TEMP 96.7; O2SAT 95
[2017-06-22] MEDS: DOCUSATE SODIUM 50 MG/SENNA 8.6 MG TAB PO SCH ×2 (08:28→20:58)
[2017-06-22 08:29] LABS: AUTOMATED NEUTROPHIL # 5.3 TH/MM3 (1.8-7.7); BASOPHIL # 0.1 TH/MM3 (0-0.2); BASOPHIL % 0.7 % (0.0-2.0); EOSINOPHIL # 0.2 TH/MM3 (0-0.4); EOSINOPHIL % 2.8 % (0.0-4.0); HEMATOCRIT 42.6 % (39.0-51.0); HEMO FLAGS DIFF FINAL; LYMPH % 22.6 % (9.0-44.0); LYMPHOCYTE # 1.9 TH/MM3 (1.0-4.8); MEAN CORPUSCULAR HEMOGLOBIN 28.8 PG (27.0-34.0); MEAN CORPUSCULAR HGB CONC 33.5 % (32.0-36.0); MONO % 10.5 % (0.0-8.0); NEUT % 63.4 % (16.0-70.0); PLATELET COUNT 183 TH/MM3 (150-450); RED BLOOD COUNT 4.95 MIL/MM3 (4.50-5.90); RED CELL DISTRIBUTION WIDTH 13.8 % (11.6-17.2); WHITE BLOOD COUNT 8.4 TH/MM3 (4.0-11.0)
[2017-06-22 08:59] LABS: ALKALINE PHOSPHATASE 65 U/L (45-117); ALT (GPT) 19 U/L (12-78); ANION GAP 7 MEQ/L (5-15); AST (GOT) 18 U/L (15-37); BLOOD UREA NITROGEN 18 MG/DL (7-18); CHLORIDE 108 MEQ/L (98-107); GLOMERULAR FILTRATION RATE 52 ML/MIN (>89); POTASSIUM 3.7 MEQ/L (3.5-5.1); SODIUM (NA) 141 MEQ/L (136-145); TOTAL BILIRUBIN ADULT 0.7 MG/DL (0.2-1.0)
[2017-06-22] MEDS: SODIUM CHLORIDE 0.9% FLUSH 10 ML FLUSH IV FLUSH SCH ×2 (09:00→20:56)
--- NOTE | 2017-06-22 11:50 | HHI.PR ---
Subjective Remarks The patient was resting comfortably in bed. He said the pain medications were working. He was wondering what the procedure would be like. He said he was hungry. Discussed with nursing. Objective Vitals Vital Signs Date Time Temp Pulse Resp B/P Pulse Ox O2 Delivery O2 Flow Rate FiO2 06/22/17 08:00 96.7 68 18 125/76 95 06/22/17 04:17 97.1 69 17 115/68 95 06/21/17 22:40 96.7 70 17 154/94 95 06/21/17 22:23 72 18 135/81 95 06/21/17 22:11 72 18 135/81 94 Room Air 06/21/17 20:37 78 18 136/79 96 Room Air 06/21/17 19:11 81 20 166/91 96 Room Air 06/21/17 17:58 98.4 88 19 157/88 98 I/O 06/21/17 06/21/17 06/21/17 06/22/17 06/22/17 06/22/17 07:00 15:00 23:00 07:00 15:00 23:00 Intake Total 0 ml 657 ml Output Total 700 ml Balance 0 ml -43 ml Intake Oral 0 ml 0 ml IV Total 657 ml Output Urine Total 700 ml # Voids 0 # Bowel Movements 0 0 Result Diagram: 06/22/17 0615 06/22/17 0615 Imaging Last Impressions Abdomen X-Ray 06/21/17 0000 Signed Impressions: Service Date/Time: Wednesday, June 21, 2017 19:10 - CONCLUSION: Benign abdomen. Elkin Perdomo MD Objective Remarks GENERAL: Middle-aged male in no acute distress. HEENT: PERRLA, EOMI. No scleral icterus or conjunctival pallor. No lid lag or facial droop. CARDIOVASCULAR: Regular rate and rhythm. No obvious murmurs to auscultation. No chest tenderness to palpation. RESPIRATORY: No obvious rhonchi or wheezing. Clear to auscultation. Breath sounds equal bilaterally. GASTROINTESTINAL: Abdomen soft, nontender, nondistended. BS normal. MUSCULOSKELETAL: Extremities without clubbing, cyanosis, or edema. No obvious deformities. NEUROLOGICAL: Awake, alert and oriented x4. No focal neurologic deficits. Moving both upper and lower extremities spontaneously. PSYCH: Mood and affect appropriate. Medications and IVs Current Medications Medications (Trade) Dose Ordered Sig/Pepito Route Start Time Stop Time Status Last Admin (NS 1000 ml Inj) 1,000 ml @ 100 mls/hr Q10H IV 06/21/17 20:38 06/22/17 05:21 (NS Flush) 2 ml UNSCH PRN IV FLUSH 06/21/17 20:45 (NS Flush) 2 ml BID IV FLUSH 06/21/17 21:00 06/21/17 21:00 (Zofran Inj) 4 mg Q6H PRN IVP 06/21/17 20:45 (Tylenol) 650 mg Q6H PRN PO 06/21/17 20:45 ([place] 5-325 Mg) 1 tab Q4H PRN PO 06/21/17 20:45 (Dilaudid Pf Inj) 1 mg Q3H PRN IV 06/21/17 20:45 06/22/17 08:32 (Teri-Colace) 1 tab BID PO 06/21/17 21:00 06/22/17 08:28 (Milk Of Magnesia Liq) 30 ml Q12H PRN PO 06/21/17 20:45 (Senokot) 17.2 mg Q12H PRN PO 06/21/17 20:45 (Dulcolax Supp) 10 mg DAILY PRN RECTAL 06/21/17 20:45 (Lactulose Liq) 30 ml DAILY PRN PO 06/21/17 20:45 (Flomax) 0.4 mg HS PO 06/21/17 21:00 06/21/17 22:00 A/P Problem List: (1) Renal stone ICD Code: N20.0 Status: Acute (2) Renal insufficiency ICD Code: N28.9 Status: Acute (3) Hydronephrosis ICD Code: N13.30 Status: Acute (4) Tobacco abuse ICD Code: Z72.0 Status: Acute Assessment and Plan Renal Stone C/o ongoing right-sided flank pain, s/p multiple ER presentations for ongoing symptoms. CT Abd/Pelvis 06/18/17 w/ right-sided obstructive uropathy secondary to 5mm stone at right UPJ w/ mild to moderate hydronephrosis. Dr. Tabares consulted by ER physician. - plan is for possible stent placement. Follow with urology. - IVF, analgesics/antiemetics, NPO for now. Hydronephrosis Secondary to obstructive uropathy as above. - Continue w/ Flomax, monitor I/O. THOMAS Creatinine 1.4, previously 1.14 on 06/19/17, secondary to renal stone w/ hydronephrosis. - IVFs. - urology evaluation as above. Tobacco abuse Pt counselled. - Ativan/NicoDerm prn if needed. DVT Prophylaxis: SCD/Teds. Discharge Planning Awaiting urology evaluation Problem Qualifiers (1) Hydronephrosis: Qualified Code: N13.2 - Hydronephrosis with urinary obstruction due to renal calculus Forrest Howard DO Jun 22, 2017 11:50
[2017-06-22] MEDS ORDERED: OXYC1CAP PO (11:51)
[2017-06-22 12:00] VITALS: BP 134/79; PULSE 78; RESP 16; TEMP 96.7; O2SAT 95
--- NOTE | 2017-06-22 14:23 | PD.CONS ---
HPI Service Urology Consult Requested By Reason for Consult Nephrolithiasis Primary Care Physician No Primary Care Physician Diagnosis: (1) Renal stone ICD Code: N20.0 (2) Renal insufficiency ICD Code: N28.9 (3) Hydronephrosis ICD Code: N13.30 (4) Tobacco abuse ICD Code: Z72.0 History of Present Illness 47yo male with history of right nephrolithiasis seen in consultation for persistent pain and right obstructing renal stone. Patient began to develop right flank pain in 06/18/17. He was evaluated at [facility] where a 5mm right UPJ stone was noted. His pain was controlled and was discharged with pain medication. He returned to the ED due to inability to fill Rx and was discharged once more. Patient now returns with persistent right flank pain, unresolved with pain medication. No fevers. Patient currently reports the pain to be sharp and stabbing, located in the right flank that has not localized more to the RLQ and groin. No hematuria. Never had kidney stones in the past. No n/V. No FMH of kidney stones. Review of Systems ROS Limitations: Clinical Condition Constitutional: DENIES: Fever Endocrine: DENIES: Polyuria Eyes: DENIES: Blurred vision Ears, nose, mouth, throat: DENIES: Hearing loss Respiratory: DENIES: Apneas, Cough Cardiovascular: DENIES: Chest pain Gastrointestinal: COMPLAINS OF: Abdominal pain, DENIES: Nausea, Vomiting Genitourinary: DENIES: Urgency, Hematuria Musculoskeletal: DENIES: Joint pain Integumentary: DENIES: Rash Hematologic/lymphatic: DENIES: Bruising Neurologic: DENIES: Abnormal gait Psychiatric: DENIES: Anxiety Except as stated in HPI: all other systems reviewed are Neg Past Family Social History Past Medical History None - now nephrolithiasis Past Surgical History Left Testicular Surgery Reported Medications Reported Meds & Active Scripts Active Oxycodone (Oxycodone HCl) 5 Mg Cap 5 Mg PO Q6H PRN Zofran Odt (Ondansetron Odt) 4 Mg Tab 4 Mg SL Q6HR PRN Hydrocodone-Acetaminophen 5-325 mg Tab 1 Tab PO Q6H PRN Flomax (Tamsulosin HCl) 0.4 Mg Cap 0.4 Mg PO HS Allergies: Coded Allergies: No Known Allergies (Unverified , 06/21/17) Active Ordered Medications Current Medications Medications (Trade) Dose Ordered Sig/Pepito Route Start Time Stop Time Status Last Admin (NS 1000 ml Inj) 1,000 ml @ 100 mls/hr Q10H IV 06/21/17 20:38 06/22/17 05:21 (NS Flush) 2 ml UNSCH PRN IV FLUSH 06/21/17 20:45 (NS Flush) 2 ml BID IV FLUSH 06/21/17 21:00 06/21/17 21:00 (Zofran Inj) 4 mg Q6H PRN IVP 06/21/17 20:45 (Tylenol) 650 mg Q6H PRN PO 06/21/17 20:45 ([place] 5-325 Mg) 1 tab Q4H PRN PO 06/21/17 20:45 (Dilaudid Pf Inj) 1 mg Q3H PRN IV 06/21/17 20:45 06/22/17 13:56 (Teri-Colace) 1 tab BID PO 06/21/17 21:00 06/22/17 08:28 (Milk Of Magnesia Liq) 30 ml Q12H PRN PO 06/21/17 20:45 (Senokot) 17.2 mg Q12H PRN PO 06/21/17 20:45 (Dulcolax Supp) 10 mg DAILY PRN RECTAL 06/21/17 20:45 (Lactulose Liq) 30 ml DAILY PRN PO 06/21/17 20:45 (Flomax) 0.4 mg HS PO 06/21/17 21:00 06/21/17 22:00 Family History Family history reviewed and noncontributory to present illness Social History Negative for alcohol or drugs. Smokes 1ppd, started 4months ago Physical Exam Vital Signs Date Time Temp Pulse Resp B/P Pulse Ox O2 Delivery O2 Flow Rate FiO2 06/22/17 12:00 96.7 78 16 134/79 95 06/22/17 08:00 96.7 68 18 125/76 95 06/22/17 04:17 97.1 69 17 115/68 95 06/21/17 22:40 96.7 70 17 154/94 95 06/21/17 22:23 72 18 135/81 95 06/21/17 22:11 72 18 135/81 94 Room Air 06/21/17 20:37 78 18 136/79 96 Room Air 06/21/17 19:11 81 20 166/91 96 Room Air 06/21/17 17:58 98.4 88 19 157/88 98 Physical Exam GENERAL: This is a well-nourished, well-developed patient, in no apparent distress. SKIN: No rashes, ecchymoses or lesions. Cool and dry. HEAD: Atraumatic. Normocephalic. EYES: Extraocular motions intact. No scleral icterus. No injection or drainage. ENT: Nose without bleeding, purulent drainage. Airway patent. NECK: Trachea midline. No JVD or lymphadenopathy. CARDIOVASCULAR: normal pulses, no edema RESPIRATORY: nonlabored, equal chest rise GASTROINTESTINAL: Abdomen soft, non-tender, nondistended. : Bilateral descended testis, no mass, circumcised phallus MUSCULOSKELETAL: Extremities without clubbing, cyanosis, or edema. No joint tenderness, effusion, or edema noted. NEUROLOGICAL: Awake and alert. Motor and sensory grossly within normal limits. Normal speech. Lab results reviewed: Yes Laboratory Tests Test 06/21/17 06/21/17 06/22/17 19:12 21:25 06:15 White Blood Count 13.4 8.4 Red Blood Count 5.37 4.95 Hemoglobin 15.2 14.3 Hematocrit 45.5 42.6 Mean Corpuscular Volume 84.8 86.0 Mean Corpuscular Hemoglobin 28.3 28.8 Mean Corpuscular Hemoglobin 33.4 33.5 Concent Red Cell Distribution Width 14.1 13.8 Platelet Count 217 183 Mean Platelet Volume 8.3 8.4 Neutrophils (%) (Auto) 84.1 63.4 Lymphocytes (%) (Auto) 8.2 22.6 Monocytes (%) (Auto) 6.1 10.5 Eosinophils (%) (Auto) 0.8 2.8 Basophils (%) (Auto) 0.8 0.7 Neutrophils # (Auto) 11.3 5.3 Lymphocytes # (Auto) 1.1 1.9 Monocytes # (Auto) 0.8 0.9 Eosinophils # (Auto) 0.1 0.2 Basophils # (Auto) 0.1 0.1 CBC Comment DIFF FINAL DIFF FINAL Differential Comment Sodium Level 138 141 Potassium Level 4.0 3.7 Chloride Level 104 108 Carbon Dioxide Level 25.4 26.0 Anion Gap 9 7 Blood Urea Nitrogen 17 18 Creatinine 1.40 1.44 Estimat Glomerular Filtration 54 52 Rate Random Glucose 111 74 Calcium Level 9.2 8.2 Magnesium Level 2.2 Urine Color YELLOW Urine Turbidity CLEAR Urine pH 5.5 Urine Specific [place] 1.013 Urine Protein NEG Urine Glucose (UA) NEG Urine Ketones 40 Urine Occult Blood MOD Urine Nitrite NEG Urine Bilirubin NEG Urine Urobilinogen LESS THAN 2.0 Urine Leukocyte Esterase NEG Urine RBC 20 Urine Mucus FEW Microscopic Urinalysis Comment CULT NOT INDICATED Total Bilirubin 0.7 Aspartate Amino Transf 18 (AST/SGOT) Alanine Aminotransferase 19 (ALT/SGPT) Alkaline Phosphatase 65 Total Protein 6.3 Albumin 3.0 Result Diagram: 06/22/17 0615 06/22/17 0615 Personally reviewed images: Yes Imaging CT scan images reviewed from initial ED visit with 5mm stone noted in the right proximal ureter/UPJ with mild/moderate hydronephrosis Last Impressions Abdomen X-Ray 06/21/17 0000 Signed Impressions: Service Date/Time: Wednesday, June 21, 2017 19:10 - CONCLUSION: Benign abdomen. Elkin Perdomo MD Assessment and Plan Problem List: (1) Hydronephrosis ICD Code: N13.30 Status: Acute (2) Ureteral calculi ICD Code: N20.1 Status: Acute Assessment and Plan 47 yo male with right nephrolithiasis and persistent flank pain -Reviewed CT scan images with right proximal ureteral stone -Patient has now been in the ED x3 with persistent right flank pain -We discussed his imaging results and possible treatment options -At this time, recommend right ureteral stent placement to alleviate his discomfort with plans for future stone removal -As patient is not septic appearing, no fevers, we will plan for stent placement tomorrow am -NPO at midnight Problem Qualifiers (1) Hydronephrosis: Qualified Code: N13.2 - Hydronephrosis with urinary obstruction due to renal calculus Perry Tabares MD Jun 22, 2017 14:23
[2017-06-22 16:00] VITALS: BP 141/83; PULSE 76; RESP 16; TEMP 96.5; O2SAT 95
[2017-06-22 20:45] VITALS: BP 141/82; PULSE 73; RESP 18; TEMP 97.2; O2SAT 98
[2017-06-22] MEDS: TAMSULOSIN HCL 0.4 MG CAP PO SCH (20:58)
[2017-06-23 00:26] VITALS: BP 140/81; PULSE 85; RESP 18; TEMP 98.1; O2SAT 95
[2017-06-23] MEDS: HYDROmorphone HCL PF 1 MG/ML VIAL IV PRN ×6 (00:57→23:39)
[2017-06-23] MEDS: SODIUM CHLOR 0.9% 1000 ML INJ 1,000 ML IV SCH ×2 (02:38→20:19)
[2017-06-23 04:08] VITALS: BP 126/77; PULSE 84; RESP 18; TEMP 98; O2SAT 97
[2017-06-23 08:00] VITALS: BP 136/80; PULSE 68; RESP 18; TEMP 97.2; O2SAT 93
[2017-06-23] MEDS: DOCUSATE SODIUM 50 MG/SENNA 8.6 MG TAB PO SCH ×2 (08:17→20:18)
[2017-06-23 08:48] LABS: BICARBONATE 27.2 MEQ/L (21.0-32.0); MAGNESIUM 2.2 MG/DL (1.5-2.5)
[2017-06-23] MEDS: SODIUM CHLORIDE 0.9% FLUSH 10 ML FLUSH IV FLUSH SCH ×2 (09:00→20:18)
--- NOTE | 2017-06-23 09:04 | HHI.PR ---
Subjective Remarks The patient was awaiting his urological procedure. He said he saw pain but it was controlled. He was not having any pain on urination. He denied any blood in the urine. Objective Vitals Vital Signs Date Time Temp Pulse Resp B/P Pulse Ox O2 Delivery O2 Flow Rate FiO2 06/23/17 08:00 97.2 68 18 136/80 93 06/23/17 04:08 98.0 84 18 126/77 97 06/23/17 00:26 98.1 85 18 140/81 95 06/22/17 20:45 97.2 73 18 141/82 98 06/22/17 16:00 96.5 76 16 141/83 95 06/22/17 12:00 96.7 78 16 134/79 95 I/O 06/22/17 06/22/17 06/22/17 06/23/17 06/23/17 06/23/17 07:00 15:00 23:00 07:00 15:00 23:00 Intake Total 657 ml 480 ml 1816 ml 1540 ml Output Total 700 ml 200 ml 2100 ml Balance -43 ml 480 ml 1616 ml -560 ml Intake Oral 0 ml 480 ml 360 ml 0 ml IV Total 657 ml 1456 ml 1540 ml Output Urine Total 700 ml 200 ml 2100 ml # Voids 2 # Bowel Movements 0 0 0 Result Diagram: 06/22/17 0615 06/23/17 0742 Imaging Last Impressions Abdomen X-Ray 06/21/17 0000 Signed Impressions: Service Date/Time: Wednesday, June 21, 2017 19:10 - CONCLUSION: Benign abdomen. Elkin Perdomo MD Objective Remarks GENERAL: Middle-aged male in no acute distress. HEENT: PERRLA, EOMI. No scleral icterus or conjunctival pallor. No lid lag or facial droop. CARDIOVASCULAR: Regular rate and rhythm. No obvious murmurs to auscultation. No chest tenderness to palpation. RESPIRATORY: No obvious rhonchi or wheezing. Clear to auscultation. Breath sounds equal bilaterally. GASTROINTESTINAL: Abdomen soft, nontender, nondistended. BS normal. MUSCULOSKELETAL: Extremities without clubbing, cyanosis, or edema. No obvious deformities. NEUROLOGICAL: Awake, alert and oriented x4. No focal neurologic deficits. Moving both upper and lower extremities spontaneously. PSYCH: Mood and affect appropriate. Medications and IVs Current Medications Medications (Trade) Dose Ordered Sig/Pepito Route Start Time Stop Time Status Last Admin (NS 1000 ml Inj) 1,000 ml @ 100 mls/hr Q10H IV 06/21/17 20:38 06/22/17 18:09 (NS Flush) 2 ml UNSCH PRN IV FLUSH 06/21/17 20:45 (NS Flush) 2 ml BID IV FLUSH 06/21/17 21:00 06/22/17 09:00 (Zofran Inj) 4 mg Q6H PRN IVP 06/21/17 20:45 (Tylenol) 650 mg Q6H PRN PO 06/21/17 20:45 ([place] 5-325 Mg) 1 tab Q4H PRN PO 06/21/17 20:45 (Dilaudid Pf Inj) 1 mg Q3H PRN IV 06/21/17 20:45 06/23/17 05:43 (Teri-Colace) 1 tab BID PO 06/21/17 21:00 06/23/17 08:17 (Milk Of Magnesia Liq) 30 ml Q12H PRN PO 06/21/17 20:45 (Senokot) 17.2 mg Q12H PRN PO 06/21/17 20:45 (Dulcolax Supp) 10 mg DAILY PRN RECTAL 06/21/17 20:45 (Lactulose Liq) 30 ml DAILY PRN PO 06/21/17 20:45 (Flomax) 0.4 mg HS PO 06/21/17 21:00 06/22/17 20:58 A/P Problem List: (1) Renal stone ICD Code: N20.0 Status: Acute (2) Renal insufficiency ICD Code: N28.9 Status: Acute (3) Hydronephrosis ICD Code: N13.30 Status: Acute (4) Tobacco abuse ICD Code: Z72.0 Status: Acute Assessment and Plan Renal Stone C/o ongoing right-sided flank pain, s/p multiple ER presentations for ongoing symptoms. CT Abd/Pelvis 06/18/17 w/ right-sided obstructive uropathy secondary to 5mm stone at right UPJ w/ mild to moderate hydronephrosis. Dr. Tabares consulted by ER physician. - plan is for possible stent placement 06/23. - IVF, analgesics/antiemetics, NPO for now. Hydronephrosis Secondary to obstructive uropathy as above. - Continue w/ Flomax, monitor I/O. THOMAS Creatinine 1.4, previously 1.14 on 06/19/17, secondary to renal stone w/ hydronephrosis. Improved with fluids. - IVFs. - urology evaluation as above. Tobacco abuse Pt counselled. - Ativan/NicoDerm prn if needed. DVT Prophylaxis: SCD/Teds. Discharge Planning Anticipate d/c home following urological procedure Problem Qualifiers (1) Hydronephrosis: Qualified Code: N13.2 - Hydronephrosis with urinary obstruction due to renal calculus Forrest Howard DO Jun 23, 2017 09:04
--- NOTE | 2017-06-23 09:05 | HHI.DCPOC ---
Discharge Care Plan Diagnosis: (1) Ureteral calculi (2) Tobacco abuse (3) Renal insufficiency (4) Renal stone (5) Hydronephrosis (6) Acute kidney injury Goals to Promote Your Health * To prevent worsening of your condition and complications * To maintain your health at the optimal level Directions to Meet Your Goals Take your medications as prescribed Follow your dietary instruction Follow activity as directed Keep your appointments as scheduled Take your immunizations and boosters as scheduled If your symptoms worsen call your PCP, if no PCP go to Urgent Care Center or Emergency Room Smoking is Dangerous to Your Health. Avoid second hand smoke Call the 24-hour hour crisis hotline for domestic abuse at Forrest Howard DO Jun 23, 2017 09:05
[2017-06-23] MEDS ORDERED: ONDANSETRON HCL 4 MG/2 ML VIAL IV PUSH ONE (12:00)
[2017-06-23] MEDS ORDERED: PROPOFOL 200 MG/20 ML AMP IV ONE (12:00)
[2017-06-23 16:00] VITALS: BP 129/85; PULSE 65; RESP 18; TEMP 96.8; O2SAT 94
--- NOTE | 2017-06-23 18:04 | HHI.PR ---
Subjective Patient symptoms today Successful right ureteral stent placement, 6x28 JJ. -Patient to follow-up with urology for definitive stone management -Patient clear for discharge with oxybutynin and pain medication for stent discomfort Objective Result Diagram: 06/22/17 0615 06/23/17 0742 Assessment and Plan Problem List: (1) Hydronephrosis ICD Code: N13.30 Status: Acute (2) Ureteral calculi ICD Code: N20.1 Status: Acute Problem Qualifiers (1) Hydronephrosis: Qualified Code: N13.2 - Hydronephrosis with urinary obstruction due to renal calculus Perry Tabares MD Jun 23, 2017 18:04
[2017-06-23] MEDS ORDERED: OXYBUTYNIN CHLORIDE 5 MG TAB PO PRN (18:15)
[2017-06-23] MEDS: TAMSULOSIN HCL 0.4 MG CAP PO SCH (20:17)
[2017-06-23 20:43] VITALS: BP 141/85; PULSE 79; RESP 18; TEMP 96.2; O2SAT 94
[2017-06-24 00:35] VITALS: BP 140/82; PULSE 70; RESP 18; TEMP 97; O2SAT 96
[2017-06-24 08:07] VITALS: BP 155/84; PULSE 74; RESP 16; TEMP 96.4; O2SAT 95
[2017-06-24] MEDS: SODIUM CHLOR 0.9% 1000 ML INJ 1,000 ML IV SCH (09:23)
[2017-06-24] MEDS: SODIUM CHLORIDE 0.9% FLUSH 10 ML FLUSH IV FLUSH SCH (09:24)
[2017-06-24] MEDS: DOCUSATE SODIUM 50 MG/SENNA 8.6 MG TAB PO SCH (09:24)
[2017-06-24] MEDS: HYDROmorphone HCL PF 1 MG/ML VIAL IV PRN (09:27)
[2017-06-24] MEDS ORDERED: OXYB5TAB10 PO (10:08)
--- NOTE | 2017-06-24 10:21 | HHI.DS ---
Discharge Summary Admission Date Jun 21, 2017 at 20:35 Discharge Date: Jun 24, 2017 Admitting Diagnosis right urethral stone with hydronephrosis, failed outpatient tx (1) Renal stone ICD Code: N20.0 (2) Renal insufficiency ICD Code: N28.9 (3) Hydronephrosis ICD Code: N13.30 (4) Tobacco abuse ICD Code: Z72.0 (5) Acute kidney injury ICD Code: N17.9 (6) Ureteral colic ICD Code: N23 Procedures Ureteral stent placement Brief History - From Admission This is a 47-year-old male with no significant PMH who presents the ER with complaints of significant right flank pain. Presented to ER on 06/18/17 for similar complaints, CT Abd/Pelvis w/ 5mm stone right UPJ and hydroureter, d/c'd home w/ outpatient Urology referral and Lortab/Flomax. Returned to ER on for ongoing complaints as unable to fill prescriptions, Case Management consulted and assisted w/ obtaining medications. Returns now w/ ongoing pain unresponsive to Lortab. Denies fever or chills. On arrival, BP 157/88, HR 88, O2 sat 98% on RA, Afebrile. W WBC 13.4. Creatinine 1.40, previously 1.14 on . UA negative for UTI. Abdominal X-ray benign. Dr. Tabares consulted by ER physician, will evaluate in am for possible stent placement. CBC/BMP: 06/22/17 0615 06/23/17 0742 Significant Findings Laboratory Tests Test 06/21/17 06/21/17 06/22/17 06/23/17 19:12 21:25 06:15 07:42 White Blood Count 13.4 TH/MM3 (4.0-11.0) Neutrophils (%) (Auto) 84.1 % (16.0-70.0) Lymphocytes (%) (Auto) 8.2 % (9.0-44.0) Neutrophils # (Auto) 11.3 TH/MM3 (1.8-7.7) Creatinine 1.40 MG/DL 1.44 MG/DL (0.60-1.30) (0.60-1.30) Estimat Glomerular Filtration 54 ML/MIN (>89) 52 ML/MIN (>89) 72 ML/MIN (>89) Rate Random Glucose 111 MG/DL (74-106) Urine Ketones 40 mg/dL (NEG) Urine Occult Blood MOD (NEG) Urine RBC 20 /hpf (0-3) Urine Mucus FEW /lpf (OCC) Monocytes (%) (Auto) 10.5 % (0.0-8.0) Chloride Level 108 MEQ/L (98-107) Calcium Level 8.2 MG/DL 8.2 MG/DL (8.5-10.1) (8.5-10.1) Total Protein 6.3 GM/DL (6.4-8.2) Albumin 3.0 GM/DL (3.4-5.0) Imaging Last Impressions Abdomen X-Ray 06/21/17 0000 Signed Impressions: Service Date/Time: Wednesday, June 21, 2017 19:10 - CONCLUSION: Benign abdomen. Elkin Perdomo MD PE at Discharge GENERAL: Middle-aged male in no acute distress. HEENT: PERRLA, EOMI. No scleral icterus or conjunctival pallor. No lid lag or facial droop. CARDIOVASCULAR: Regular rate and rhythm. No obvious murmurs to auscultation. No chest tenderness to palpation. RESPIRATORY: No obvious rhonchi or wheezing. Clear to auscultation. Breath sounds equal bilaterally. GASTROINTESTINAL: Abdomen soft, nontender, nondistended. BS normal. MUSCULOSKELETAL: Extremities without clubbing, cyanosis, or edema. No obvious deformities. NEUROLOGICAL: Awake, alert and oriented x4. No focal neurologic deficits. Moving both upper and lower extremities spontaneously. PSYCH: Mood and affect appropriate. Pt update on day of discharge The pt was resting comfortably in bed. He had no acute complaints. He wanted to know what pain medications he would be taking. Hospital Course Renal stone/ hydronephrosis The pt complained of ongoing right-sided flank pain, s/p multiple ER presentations for symptoms. CT Abd/Pelvis 06/18/17 w/ right-sided obstructive uropathy secondary to 5mm stone at right UPJ w/ mild to moderate hydronephrosis. Dr. Tabares of urology was consulted by the ER physician. The pt received pain control and IVFs. He went for stent placement 06/23. He will be discharged with oxybutynin, Flomax and oxycodone. He will follow up with urology as an outpt. Acute kidney injury Creatinine 1.4 on admission. Resolved with IV fluids. He will follow up with urology. Pt Condition on Discharge: Good Discharge Disposition: Discharge Home Discharge Time: > 30 minutes Discharge Instructions DIET: Follow Instructions for: As Tolerated, No Restrictions Activities you can perform: Weight Bearing as Nikolai Follow up Referrals: PCP Follow-up - 1 Week Urology - 1 Week with Perry Tabares MD New Medications: Oxycodone (Oxycodone) 5 Mg Cap 5 MG PO Q6H PRN PAIN #14 Ref 0 CAP Oxybutynin (Ditropan) 5 Mg Tab 5 MG PO Q8HR PRN BLADDER SPASM #30 TAB Continued Medications: Ondansetron Odt (Zofran Odt) 4 Mg Tab 4 MG SL Q6HR PRN Nausea/Vomiting #10 TAB Tamsulosin (Flomax) 0.4 Mg Cap 0.4 MG PO HS Manage Prostate Problems #10 Ref 0 CAP Discontinued Medications: Hydrocodone-Acetaminophen (Hydrocodone-Acetaminophen) 5-325 mg Tab 1 TAB PO Q6H PRN PAIN #20 Ref 0 TAB Forrest Howard DO Jun 24, 2017 10:21
[2017-06-24 11:03] VITALS: BP 157/95; PULSE 66; RESP 16; TEMP 96; O2SAT 96
--- NOTE | 2017-06-25 09:51 | MP ---
cc: ARIELLE SANTOS MD DATE OF SURGERY 06/23/2017 PREOPERATIVE DIAGNOSES Right nephrolithiasis. POSTOPERATIVE DIAGNOSIS Right nephrolithiasis. SURGEON Arielle Santos MD PROCEDURES PERFORMED 1. Cystoscopy. 2. Right ureteral stent placement. PERTINENT FINDINGS 1. Right proximal ureteral stone causing obstruction with some murky fluid obtained from the right collecting system upon placement of the stent. 2. Successful placement of 6 x 28 double-J ureteral stent on the right. HISTORY OF PRESENT ILLNESS Saleem Dupont is a 47-year-old male with a right obstructing proximal ureteral stone measuring approximately 5 mm in size. The patient has been to the ER three times thus far with persistent right flank pain unresolved with pain medication. Therefore he presents now for management of the right ureteral stent placement. PROCEDURE IN DETAIL After proper informed consent was obtained, the patient with laying supine on the operating table. Bilateral lower extremities . The patient placed under general anesthesia. The patient placed in position, and prepped and draped in the standard surgical fashion. After proper time out was completed, the ureteroscope was inserted through the urethra into the bladder. Urethral mucosa was within normal limits. prior to entering the bladder. Bilateral ureteral orifice were identified. The right ureteral orifice was then identified and cannulated using the guidewire. The wire was passed up successfully. This was confirmed in position via fluoroscopy. At this point a 6 x 28 double J ureteral stent was successfully placed over the wire into the right collective system with good curl in the renal pelvis as well as in the bladder. There was some resistance me in the proximal ureter and it was felt that the stone was pushed in to the right kidney. After adequate placement of the stent, some dark fluid was expressed from the right collecting system. The patient's bladder was emptied and the scope was removed. The patient tolerated the procedure well with no complications. DISPOSITION The patient was returned to his inpatient room. The patient is cleared for discharge from urology standpoint with followup in urology for definitive management of the stone burden. Amairani Jackson/KK /6:05 PM /9:41 AM
== END 2017-06-24 14:02 | disposition home or self-care (01) | DRG 694 ==
LOC: NEPC 17:57 → NEDA 20:35 → N06A 22:33
PROVIDERS: ADMIT Hospitalist; ATTEND Hospitalist
PROC: 0T768DZ Dilation of Right Ureter with Intraluminal Device, Via Natural or Artificial Opening Endoscopic (ICD-10-PCS; principal; 2017-06-23 17:35)
DX: N13.2 Hydronephrosis with renal and ureteral calculous obstruction (principal); N17.9 Acute kidney failure, unspecified; F17.210 Nicotine dependence, cigarettes, uncomplicated
CPT/HCPCS: 74000; 80048; 80053; 81001; 83735; 85025; 96374; 96375; C2617; J1170; J1885; J2270; J2405; J3010; J7030

== ENCOUNTER → 2017-08-13 | Day surgery (SDC) | payer OTHER ==
[~2017-08-13] VITALS: Ht 182.9 cm; Wt 103.1 kg
[~2017-08-13] MED LIST changes: +*RESP: ALBUTEROL 2.5 MG/3 ML NEB (PRN) PERIprocedural Use ONLY NEB ONE; +CHLORHEXIDINE GLUCONATE 2 % 1 PACK (2 CLOTHS) TOPICAL PRN; +CIPROFLOXACIN 500 MG TAB PO SCH; +DEXAMETHASONE SOD PHOS 4 MG/ML VIAL IV ONE; +DO NOT ADM ANY ANTICOAGULANT DRUGS PRN; -HYDR-3516 PO; -HYDR-3533 PO; +INSULIN HUMAN REGULAR 1,000 UNITS/10 ML VIAL SQ PRN; +LACTATED RINGER'S 1000 ML IV PRN; +LIDOCAINE HCL 1% PF 5 ML AMPULE OTHER ONE; +METOPROLOL TARTRATE 25 MG TAB PO PRN; +MIDAZOLAM HCL 2 MG/2 ML VIAL IV ONE; +ONDANSETRON HCL 4 MG/2 ML VIAL IV PUSH ONE; +OXYB5TAB10 PO; +OXYC1CAP PO; +POVIDONE IODINE 5% (ANTISEPSIS KIT) 4 APPLICATIONS EACH NARE PRN; +PROPOFOL 200 MG/20 ML AMP IV ONE; +SODIUM CHLORID 0.9% 500 ML IV PRN; +STERILE WATER FOR INJECTION 20 ML VIAL IV ONE; +ceFAZolin 2 GM PREMIX 50 ML IV SCH; +ceFAZolin INJ 1,000 MG VIAL IV ONE; +ceFAZolin INJ 1,000 MG VIAL ONE; +oxyCODONE/ACETAMINOPHEN 5 MG/325 MG TAB PO ONE; +oxyCODONE/ACETAMINOPHEN 5 MG/325 MG TAB PO PRN
[2017-08-13 10:05] VITALS: BP 148/96; PULSE 68; RESP 16; TEMP 97.6; O2SAT 96
--- NOTE | 2017-08-13 11:16 | MR ---
cc: ARIELLE SANTOS MD DATE 08/13/2017 PREOPERATIVE DIAGNOSIS Right-sided nephrolithiasis POSTOPERATIVE DIAGNOSIS Right-sided nephrolithiasis SURGEON Arielle Santos MD PROCEDURE PERFORMED 1. Cystoscopy 2. Right ureteroscopy. 3. Stone basket extraction 4. Right ureteral stent removal PERTINENT FINDINGS 1. Proximal right ureteral stone identified and successfully removed via basket extraction. 2. No ureteral stent was replaced. HISTORY OF PRESENT ILLNESS Saleem Dupont is a 47-year-old male who was found to have a right-sided proximal obstructing ureteral stone. He underwent right ureteral stent placement approximately one months ago and now presents for definitive treatment with ureteroscopy, stone and stent removal. PROCEDURE IN DETAIL After proper informed consent was obtained, the patient was brought to the operating room and laid supine on the operating room table. The patient was then placed under general anesthesia. The patient placed in the lithotomy position, prepped and draped in standard surgical fashion. After a proper time out was completed, the rigid cystoscope inserted through the urethra into the bladder. The urethral mucosa was within normal limits without any abnormalities or lesion identified throughout. On entering the bladder, bilateral ureteral orifices were identified. The right ureteral orifice had the stent in place. This was grasped using flexible graspers and brought out through the urethral meatus. At this point, the wire was passed through the stent into the right collecting system. The stone was identified under fluoroscopic imaging in the right proximal ureter. At this point in time, the ureteroscope was advanced alongside the wire up into the right proximal ureter. Upon encountering the stone, a 2.4 Chinese 0-tipped basket was inserted through the semi-rigid ureteroscope and the stone was grabbed with the basket. The stone was then brought out from the right collecting system and sent off for pathology review. The semi-rigid ureteroscope was then reinserted into the right collecting system with no other stone burden identified. No other abnormalities were identified throughout the entire length of the right ureter. At this point, the semi-rigid ureteroscope was removed and the wire was removed from the right collecting system as it was decided not to place a stent on the right side. The remainder of the lower bladder was inspected. No other abnormalities noted. At this point, the patient's bladder was emptied and the scope was removed. The patient tolerated the procedure well with no complications. DISPOSITION The patient will be discharged home and will followup in the clinic a few weeks. Amairani Jackson/JOSE /8:17 AM /10:52 AM
== END | disposition home or self-care (01) ==
LOC: HSDC 05:41
PROVIDERS: ATTEND Urology
DX: N20.2 Calculus of kidney with calculus of ureter (principal); F17.210 Nicotine dependence, cigarettes, uncomplicated
CPT/HCPCS: 00918; 52310; 52352; 82365; 82370; 88300; 94664; C1769; J0690; J1100; J2250; J2405; J3010; J7120; J7613